=== PATIENT | female | born 1985 | race Caucasian/White ===

== ENCOUNTER → 2019-03-24 | Outpatient (CLI) | payer OTHER ==
--- NOTE | 2019-03-24 15:14 | US ---
EXAMINATION TYPE: US venous doppler duplex LE LT DATE OF EXAM: 03/24/2019 3:04 PM COMPARISON: NONE CLINICAL HISTORY: M79.662 PAIN LT LOWER LEG,S86.112A STRAIN OF MUSCLES TENDONS. SIDE PERFORMED: Left TECHNIQUE: The lower extremity deep venous system is examined utilizing real time linear array sonog anam with graded compression, doppler sonography and color-flow sonography. VESSELS IMAGED: External Iliac Vein (EIV) Common Femoral Vein Deep Femoral Vein Greater Saphenous Vein * Femoral Vein Popliteal Vein Small Saphenous Vein * Proximal Calf Veins (* superficial vessels) Grayscale, color doppler, spectral doppler imaging performed of the deep veins of the lower extremiti es. GSV also scanned and PTV per order. There is normal flow, compressibility, vascular waveforms. Left Leg: Negative for DVT. IMPRESSION: No sonographic evidence of deep venous thrombosis in the visualized left lower extremity .
== END | disposition home or self-care (01) ==
LOC: RADUSWWP 14:23
PROVIDERS: ATTEND Orthopaedic Surgery
DX: I80.3 Phlebitis and thrombophlebitis of lower extremities, unspecified (principal); S86.112A Strain of other muscle(s) and tendon(s) of posterior muscle group at lower leg level, left leg, initial encounter

== ENCOUNTER → 2019-08-04 | Outpatient (CLI) | payer OTHER ==
--- NOTE | 2019-08-04 10:26 | MM ---
Reason for exam: additional evaluation requested from prior study. Last mammogram was performed 3 years and 10 months ago. History: Family history of breast cancer in father at age 59. Took hormonal contraceptives for 6 years beginning at age 22. Physical Findings: Nurse did not find any significant physical abnormalities on exam. MG 3D Diag Mammo W/Cad SHALINI Bilateral CC and MLO view(s) were taken. Prior study comparison: October 12, 2015, bilateral MG 3d diag mammo w/cad SHALINI. The breast tissue is heterogeneously dense. This may lower the sensitivity of mammography. Palpable marker right upper outer quadrant. Asymmetric densities on the MLO views, one on the right and two on the left. These results were verbally communicated with the patient and result sheet given to the patient on 08/04/19. ASSESSMENT: Incomplete: need additional imaging evaluation, BI-RAD 0 RECOMMENDATION: Ultrasound of both breasts.
--- NOTE | 2019-08-04 10:28 | USB ---
Reason for exam: additional evaluation requested from abnormal screening. History: Family history of breast cancer in father at age 59. Took hormonal contraceptives for 6 years beginning at age 22. US Breast BILAT Left complete breast ultrasound includes all four quadrants, the retroareolar region and axilla. Finding demonstrates a 7 x 3 x 6mm oval, cystic, benign lesion at 12 o'clock and a 5 x 4 x 7mm oval, cystic, benign lesion at 2 o'clock. Right complete breast ultrasound includes all four quadrants, the retroareolar region and axilla. Finding demonstrates no cystic or solid lesion seen. No abnormality at the patient palpated and painful right upper outer quadrant site. Dense tissues throughout. No other solid or cystic lesion on either side. These results were verbally communicated with the patient and result sheet given to the patient on 08/04/19. ASSESSMENT: Benign, BI-RAD 2 RECOMMENDATION: Routine screening mammogram of both breasts in 1 year. Manage on a clinical basis with regard to any clinically suspicious palpable abnormality and breast pain.
== END | disposition home or self-care (01) ==
LOC: RADMAMWWP 08:41
PROVIDERS: ATTEND Family Medicine
DX: N63.0 Unspecified lump in unspecified breast (principal); R92.8 Other abnormal and inconclusive findings on diagnostic imaging of breast; Z80.3 Family history of malignant neoplasm of breast
CPT/HCPCS: 77066; 76641; G0279; 77062

== ENCOUNTER → 2019-11-20 | Outpatient (CLI) | payer OTHER ==
--- NOTE | 2019-11-20 22:02 | US ---
EXAMINATION TYPE: US pelvic complete DATE OF EXAM: 11/20/2019 COMPARISON: US 2012 CLINICAL HISTORY: pelvic pain R10.2. Irregular cycles x 1 year, occasional right pelvic pain, 5, para 3, miscarriage 2 TECHNIQUE: . Transabdominal sonographic images of the pelvis were acquired. Date of LMP: 11/05/2019 EXAM MEASUREMENTS: Uterus: 8.7 x 4.5 x 4.7 cm Endometrial Stripe: 1.3 cm Right Ovary: 2.4 x 1.6 x 2.2 cm Left Ovary: 3.1 x 2.6 x 2.7 cm 1. Uterus: anteverted 2. Endometrium: wnl 3. Right Ovary: wnl 4. Left Ovary: 1.8cm cystic area 5. Bilateral Adnexa: wnl 6. Posterior cul-de-sac: wnl IMPRESSION: 1. 1.8 cm left ovarian cyst
== END | disposition home or self-care (01) ==
LOC: RADUSWWP 16:01
PROVIDERS: ATTEND Obstetrics & Gynecology
DX: N83.202 Unspecified ovarian cyst, left side (principal)
CPT/HCPCS: 76856

== ENCOUNTER 2020-02-01 06:16 | Day surgery (SDC) | payer OTHER ==
[2020-01-26 11:31] VITALS: BMI 27.0
[~2020-02-01 06:16] MED LIST: DEXAMETHASONE SOD PHOSPHATE 10 MG/ML 1 ML VIAL IV ONE; HYDROmorphone 0.5 MG/0.5 ML SYRINGE IVP PRN; LACTATED RINGERS 1,000 ML IV SCH; MIDAZOLAM 2 MG/2 ML VIAL IV PRN; ONDANSETRON 4 MG/2 ML VIAL IVP ONE; Pre Op ABX Message 1 EACH MISC MISCELLANE ONE; SCOPOLAMINE 1.5MG/72HR PATCH TRANSDERM ONE
[2020-02-01] MEDS ORDERED: ONDANSETRON 4 MG/2 ML VIAL ONE (06:55)
--- NOTE | 2020-02-01 07:31 | P.HPOB ---
History of Present Illness H&P Date: 02/01/20 Chief Complaint: Pelvic pain Patient is a 34-year-old female with pelvic pain. She is had significant help with pain for an extended period of time it is predominantly cyclic and is at times debilitating. She and I had discussed transferring her care to pelvic pain center in [place] however she would like at least a diagnosis so that she may have a better understanding of the process that is going on so that if she has endometriosis or other findings that she can better deal with it. Risks and benefits of diagnostic laparoscopy including but not limited to bleeding and infection, damage to bladder or bowel or nerves or vessels were discussed with patient in detail potential need for other surgeries was discussed. She is aware that if there is scant or small amount of endometriosis we'll try and ablate them but if it is significant disease process will take pictures and refer her out for further surgical or medical options. Past Medical History Past Medical History: GERD/Reflux Additional Past Medical History / Comment(s): Abd pain and abnormal bleeding after intercourse and intermediate bleeding between menses, hx Past obstetrical history shows that she's had 2 term vaginal deliveries 6 lbs. 8 oz. and 6 lbs. 12 oz. She is also had 3 spontaneous miscarriages and 1 elective . History of Any Multi-Drug Resistant Organisms: None Reported Past Surgical History: Cholecystectomy Additional Past Surgical History / Comment(s): D&C, Past Anesthesia/Blood Transfusion Reactions: Motion Sickness, Postoperative Nausea & Vomiting (PONV) Additional Past Anesthesia/Blood Transfusion Reaction / Comment(s): hx having to use scopalomine patch and took a long time to wake up with gallbladder surgery,no hx blood transfusion Smoking Status: Current every day smoker - Past Family History Mother Family Medical History: Cancer Additional Family Medical History / Comment(s): breast Father Family Medical History: Cancer Medications and Allergies Home Medications Medication Instructions Recorded Confirmed Type ALPRAZolam [Xanax] 0.25 mg PO BID PRN 11/20/14 02/01/20 History Desvenlafaxine Succinate [Pristiq] 50 mg PO HS 01/26/20 02/01/20 History Dextroamphetamine/Amphetamine 20 mg PO QAM 01/26/20 02/01/20 History [Adderall Xr] Ibuprofen 400 mg PO DAILY PRN 01/26/20 01/26/20 History Allergies Allergy/AdvReac Type Severity Reaction Status Date / Time Tetanus Vaccines and Toxoid Allergy Swelling Verified 02/01/20 06:41 [Tetanus Vaccines & Toxoid] Exam Osteopathic Statement: *. No significant issues noted on an osteopathic structural exam other than those noted in the History and Physical/Consult. Vital Signs Temp Pulse Resp BP Pulse Ox 02/01/20 06:47 97.2 F L 76 17 115/57 98 Intake and Output 01/31/20 02/01/20 02/01/20 22:59 06:59 14:59 Other: Weight 68.946 kg - OBG Physical Exam Breast: both: normal (no masses) Abdomen: bowel sounds normal, no diffuse tenderness, no bruit present, no guarding noted, no hepatomegaly, no splenomegaly, no mass Vulva: both: normal Vagina: normal moisture, no discharge Cervix: no lesion, no discharge Uterus: normal size, normal contour Adnexa: both: normal Anus/Rectum: normal perianal skin, no rectal mass, no hemorrhoids, heme negative
[2020-02-01] MEDS ORDERED: PROPOFOL 10 MG/ML 20 ML VIAL IV ONE (07:37)
[2020-02-01] MEDS ORDERED: NEOSTIGMINE 1 MG/ML 10 ML VIAL ONE (07:37)
[2020-02-01] MEDS ORDERED: ROCURONIUM 10 MG/ML (5 ML VIAL) IV ONE (07:37)
[2020-02-01] MEDS ORDERED: LIDOCAINE 1% INJ 10MG/ML (20 ML MDV) ONE (07:37)
[2020-02-01] MEDS ORDERED: KETOROLAC 30 MG/ML 1 ML VIAL ONE (07:37)
[2020-02-01] MEDS ORDERED: fentaNYL (PF) 50 MCG/ML 2 ML AMP ONE (07:37)
[2020-02-01] MEDS ORDERED: MIDAZOLAM 2 MG/2 ML VIAL ONE (07:37)
[2020-02-01] MEDS ORDERED: GLYCOPYRROLATE 0.2 MG/ML 2 ML VIAL ONE (07:37)
[2020-02-01] MEDS ORDERED: ePHEDrine SULFATE/0.9% NACL/PF 50 MG/5 ML SYRINGE IV ONE (07:37)
[2020-02-01] MEDS ORDERED: SUCCINYLCHOLINE CHLORIDE 100 MG/5 ML SYR IV ONE (07:37)
[2020-02-01] MEDS ORDERED: BUPIVACAINE (PF) 0.25% 30 ML VIAL SQ ONE (08:10)
--- NOTE | 2020-02-01 08:18 | P.OP ---
Date of Procedure: 02/01/20 Preoperative Diagnosis: Pelvic pain Postoperative Diagnosis: Same with stage I endometriosis Procedure(s) Performed: Diagnostic laparoscopy with electrofulguration of endometrial implants Anesthesia: TIO Surgeon: Aravind Mark Estimated Blood Loss (ml): 2 IV fluids (ml): 300 Urine output (ml): 50 Pathology: none sent Condition: stable Disposition: same day Operative Findings: Stage I endometriosis predominantly located in the posterior cul-de-sac and the anterior portion. These were left are fulgurated. There were also a few endometrial implants on the uterus on the left side there were scattered an elective fulgurated Description of Procedure: Patient was taken to the operative suite where a general anesthetic was found be adequate. She was prepped and draped in normal sterile fashion and placed in dorsal lithotomy position. Initially a speculum was inserted into the vagina and the anterior lip of the cervix identified and grasped with a Allis clamp. Cervix was then sounded and uterus sounded to 9 cm. A uterine manipulator was inserted without difficulty other incidents removed red rubber catheter was used to drain the bladder urine. Gloves were then changed and attention was turned to abdominal portion procedure where 3 mL of quarter percent Marcaine was injected periumbilically. Through this injected anesthetic a 5 mm skin incision was made and through this incision, under direct visualization, camera port and sleeve were inserted. Once peritoneal placement was assured gas was allowed to fully insufflate the abdomen and patient was then placed in steep Trendelenburg position. A second 8 mm skin incision was then made 3 cm above the pubic symphysis in the midline and a port and sleeve were inserted under direct visualization. Observations pelvis were noted using a probe we're able to delineate several initial implants on the left side of the uterus anteriorly. And then in the cul-de-sac tucked underneath the uterus there were also 5 or 6 endometrial implants these were darker red then the vesicular lesions on the uterine wall. These were identified and seen no other changes. Normal appendix was also noted. J-hook cautery was used to left are full grade endometrial implants. All incidents were then removed. Gas was allowed to expel from the abdomen. 5 deep breaths were provided during this process. 4-0 Vicryl was then used to close incision subcuticularly and the remaining 7 mL of quarter percent Marcaine was injected around these incisions. Instrument was then removed from vagina. Sponge, lap and needle counts were all correct 2. Patient was then taken to the recovery room in stable and satisfactory condition. Plan - Discharge Summary Discharge Rx Participant: No New Discharge Prescriptions: New Ibuprofen [Motrin] 600 mg PO Q6HR PRN #30 tab PRN Reason: Pain HYDROcodone/APAP 5-325MG [[place] 5-325] 1 tab PO Q4HR PRN #30 tab PRN Reason: Pain No Action ALPRAZolam [Xanax] 0.25 mg PO BID PRN PRN Reason: Anxiety Dextroamphetamine/Amphetamine [Adderall Xr] 20 mg PO QAM Desvenlafaxine Succinate [Pristiq] 50 mg PO HS Ibuprofen 400 mg PO DAILY PRN PRN Reason: Pain Discharge Medication List ALPRAZolam [Xanax] 0.25 mg PO BID PRN 11/20/14 [History] Desvenlafaxine Succinate [Pristiq] 50 mg PO HS 01/26/20 [History] Dextroamphetamine/Amphetamine [Adderall Xr] 20 mg PO QAM 01/26/20 [History] Ibuprofen 400 mg PO DAILY PRN 01/26/20 [History] HYDROcodone/APAP 5-325MG [[place] 5-325] 1 tab PO Q4HR PRN #30 tab 02/01/20 [Rx] Ibuprofen [Motrin] 600 mg PO Q6HR PRN #30 tab 02/01/20 [Rx] Follow up Appointment(s)/Referral(s): Aravind Mark DO [Doctor of Osteopathic Medicine] - 1 Week Activity/Diet/Wound Care/Special Instructions: No heavy lifting, limit stairs and driving, and pelvic rest. If any high temperatures, heavy bleeding, or severe pain call my office Discharge Disposition: HOME SELF-CARE
[2020-02-01 08:34] VITALS: TEMP 97.4
[2020-02-01] MEDS ORDERED: FAMOTIDINE 20 MG/2 ML VIAL IVP ONE (08:44)
[2020-02-01] MEDS ORDERED: LACTATED RINGERS 1,000 ML IV ONE (09:03)
[2020-02-01 09:22] VITALS: BP 106/57; PULSE 66; RESP 16
== END 2020-02-01 10:10 | disposition home or self-care (01) ==
LOC: OR 06:16
PROVIDERS: ATTEND Obstetrics & Gynecology
DX: N80.0 Endometriosis of uterus (principal); F17.210 Nicotine dependence, cigarettes, uncomplicated; K21.9 Gastro-esophageal reflux disease without esophagitis; Z88.7 Allergy status to serum and vaccine; Z79.899 Other long term (current) drug therapy; Z90.49 Acquired absence of other specified parts of digestive tract; Z80.3 Family history of malignant neoplasm of breast; Z80.9 Family history of malignant neoplasm, unspecified
CPT/HCPCS: 81025; 84703; 58662; J2250; J1100; J2710; J2405; J2001; J3010; J1885; J0330; J2704